=== PATIENT | male | born 1950 | race Caucasian/White ===

== ENCOUNTER 2017-12-21 14:30 | Inpatient (IN) ==
[2017-12-21] MEDS ORDERED: ACETAMINOPHEN 325 MG TABLET PO PRN (15:16)
[2017-12-21] MEDS ORDERED: PROMETHAZINE 25 MG/1 ML VIAL IM PRN (15:16)
[2017-12-21] MEDS ORDERED: DOCUSATE SODIUM 100 MG CAPSULE PO PRN (15:16)
[2017-12-21] MEDS ORDERED: KETOROLAC 30 MG/1 ML VIAL IV ONE (15:16)
[2017-12-21] MEDS ORDERED: ONDANSETRON 4 MG/2 ML VIAL IV PRN (15:16)
[2017-12-21] MEDS ORDERED: diphenhydrAMINE CAP 25 MG CAPSULE PO PRN (15:16)
[2017-12-21] MEDS ORDERED: FLUTICASONE 50 MCG NASAL SPRAY 16 GM BOTTLE BOTH NARES PRN (15:22)
[2017-12-21] MEDS ORDERED: oxyCODONE/ACETAMINOPHEN 5-325 MG TABLET PO PRN (15:22)
[2017-12-21] MEDS ORDERED: SODIUM CHLORIDE 0.9% 1,000 ML IV ONE (15:23)
[2017-12-21] MEDS ORDERED: MEPERIDINE 50 MG/1 ML VIAL IV SCH (15:30)
[2017-12-21] MEDS ORDERED: MEPERIDINE 25 MG/1 ML VIAL IV SCH (15:30)
[2017-12-21] MEDS ORDERED: KETOROLAC 30 MG/1 ML VIAL IV SCH (15:30)
[2017-12-21] MEDS ORDERED: KETOROLAC 30 MG/1 ML VIAL ONE (15:33)
[2017-12-21] MEDS ORDERED: MEPERIDINE 50 MG/1 ML VIAL IV PRN (15:35)
[2017-12-21] MEDS ORDERED: MEPERIDINE 25 MG/1 ML VIAL IV PRN (15:35)
[2017-12-21 16:17] LABS: Risk Ratio 3.65; Thyroid Stimulating Hormone 1.63 uIU/ml (0.358-3.74); VLDL CHOLESTEROL 18.4 MG/DL
[2017-12-21] MEDS ORDERED: NALOXONE 0.4 MG/ML VIAL IV PRN (17:24)
[2017-12-21] MEDS: SODIUM CHLORIDE 0.9% 1,000 ML IV SCH (17:52)
[2017-12-21] MEDS: MEPERIDINE PCA 300 MG/30 ML SYRINGE IV SCH (18:11)
[2017-12-21 18:42] LABS: Apearance,Urine CLEAR (Clear); Bacteria,Urine Occasional /HPF (Few); Bilirubin,Urine Negative (Negative); Blood, Urine Negative (Negative); Glucose,Urine (UA) Negative (Negative); Ketones,Urine Negative (Negative); Mucus,Urine Occasional /LPF (Occasional); Nitrite,Urine Negative (Negative); Protein,Urine Negative; RBC,Urine 1 /HPF (0-4); Urine Color Yellow (Yellow); Urine Specific Gravity 1.051 (1.001-1.035); Urine Urobilinogen < 2.0 EU/DL (0.2-1.0); WBC,Urine 1 /HPF (0-6)
[2017-12-21] MEDS: PANTOPRAZOLE 40 MG TABLET PO SCH (18:59)
[2017-12-21] MEDS ORDERED: ENOXAPARIN 40 MG/0.4 ML SYRINGE SUBCUT SCH (21:00)
[2017-12-21] MEDS: LEVOTHYROXINE 75 MCG TABLET PO SCH (21:05)
[2017-12-21] MEDS: TAMSULOSIN 0.4 MG CAPSULE PO SCH (21:05)
[2017-12-21] MEDS: ZALEPLON 5 MG CAPSULE PO SCH (21:05)
[2017-12-21] MEDS: oxyCODONE ER 20 MG TABLET PO SCH (21:06)
[2017-12-21] MEDS: GLUCOSAMINE 500 MG TABLET PO SCH (21:06)
[2017-12-21] MEDS ORDERED: oxyCODONE/ACETAMINOPHEN 5-325 MG TABLET PO SCH (22:00)
[2017-12-22] MEDS: SODIUM CHLORIDE 0.9% 1,000 ML IV SCH ×5 (02:18→23:31)
[2017-12-22 07:00] LABS: Basophils % 0.3 % (0.0-0.8); Eosinophils # 0.2 10*3/uL (0.0-0.87); Eosinophils % 2.1 % (0.00-10.9); Hematocrit 38.5 VOL% (42.0-52.0); Hemoglobin 12.2 GM/DL (14.0-18.0); Immature Granulocytes % 0.4 %; Immature Granulocytes Absolute 0.04 #; Mean Corpuscular HGB Conc 31.7 GM/DL (32-36); Mean Corpuscular Hemoglobin 29 PG (27-34); Mean Corpuscular Volume 91.2 FL (87-102); Mean Platelet Volume 12.4 FL (9.6-12.0); Monocytes # 1.2 10*3/uL (0.11-0.8); Monocytes % 12.4 % (1.7-12.7); Neutrophils % 63.8 % (38.7-73.9); Platelet Count 202 T/CUMM (130-400); Red Blood Count 4.22 MC/CUMM (3.8-5.5); Red Cell Distribution Width 15.8 % (9.3-17.3); White Blood Count 9.4 T/CUMM (4-12)
[2017-12-22 07:18] LABS: Calcium 7.8 MG/DL (8.5-10.1); Osmolality,Calculated 278.5 MOS/KG (273-304); Potassium 4.1 MMOL/L (3.5-5.1)
[2017-12-22] MEDS: ESCITALOPRAM 10 MG TABLET PO SCH (08:29)
[2017-12-22] MEDS: TAMSULOSIN 0.4 MG CAPSULE PO SCH (08:29)
[2017-12-22] MEDS: PANTOPRAZOLE 40 MG TABLET PO SCH (08:30)
[2017-12-22] MEDS: CETIRIZINE 10 MG TABLET PO SCH (08:30)
[2017-12-22] MEDS: GLUCOSAMINE 500 MG TABLET PO SCH ×2 (08:31→20:13)
[2017-12-22] MEDS: MULTIVITAMIN (CENTRUM) TABLET PO SCH (08:31)
[2017-12-22] MEDS: oxyCODONE ER 20 MG TABLET PO SCH ×2 (08:32→20:12)
[2017-12-22] MEDS ORDERED: SODIUM CHLORIDE 0.9% 1,000 ML IV ONE (09:57)
[2017-12-22] MEDS: MEPERIDINE PCA 300 MG/30 ML SYRINGE IV SCH (20:11)
[2017-12-22] MEDS: ZALEPLON 5 MG CAPSULE PO SCH (20:13)
[2017-12-22] MEDS: LEVOTHYROXINE 75 MCG TABLET PO SCH (20:13)
[2017-12-23] MEDS: oxyCODONE ER 20 MG TABLET PO SCH (07:45)
[2017-12-23] MEDS ORDERED: SUGAMMADEX 200 MG/2 ML VIAL IV ONE (08:18)
[2017-12-23] MEDS ORDERED: TOBRAMYCIN 80 MG/2 ML VIAL ONE (08:50)
[2017-12-23] MEDS ORDERED: NEOSTIGMINE 10 MG/10 ML VIAL ONE ×2 (09:00→09:59)
[2017-12-23] MEDS ORDERED: PROPOFOL 200 MG/20 ML VIAL IV ONE (09:57)
[2017-12-23] MEDS ORDERED: ROCURONIUM 100 MG/10 ML VIAL IV ONE (09:58)
[2017-12-23] MEDS ORDERED: SEVOFLURANE 1 UNIT/15 MINUTE INH ONE (09:58)
[2017-12-23] MEDS ORDERED: ONDANSETRON 4 MG/2 ML VIAL ONE (09:58)
[2017-12-23] MEDS ORDERED: ePHEDrine 50 MG/ML AMP ONE (09:58)
[2017-12-23] MEDS ORDERED: fentaNYL 100 MCG/2 ML VIAL ONE (09:58)
[2017-12-23] MEDS ORDERED: ACETAMINOPHEN 1,000 MG/100 ML VIAL IV ONE (09:58)
[2017-12-23] MEDS ORDERED: MIDAZOLAM 2 MG/2 ML VIAL ONE (09:58)
[2017-12-23] MEDS ORDERED: GLYCOPYRROLATE 0.4 MG/2 ML VIAL ONE (09:58)
[2017-12-23] MEDS: SODIUM CHLORIDE 0.9% 1,000 ML IV SCH (11:19)
[2017-12-23] MEDS: MULTIVITAMIN (CENTRUM) TABLET PO SCH (11:26)
[2017-12-23] MEDS: GLUCOSAMINE 500 MG TABLET PO SCH (11:26)
[2017-12-23] MEDS: ESCITALOPRAM 10 MG TABLET PO SCH (11:26)
[2017-12-23] MEDS: CETIRIZINE 10 MG TABLET PO SCH (11:28)
[2017-12-23] MEDS: oxyCODONE/ACETAMINOPHEN 5-325 MG TABLET PO PRN ×2 (11:38→13:29)
[2017-12-23] MEDS: PANTOPRAZOLE 40 MG TABLET PO SCH (11:47)
[2017-12-23] MEDS ORDERED: PHENAZOPYRIDINE 95 MG TABLET PO SCH (12:00)
[2017-12-23 12:48] VITALS: BP 116/71
[2017-12-26 22:01] LABS: Stone Source Passed Stone
== END 2017-12-23 16:14 | disposition home or self-care (01) | DRG 660 ==
LOC: N.ED 14:30 → N.EDINP 15:16 → N.5E 16:28
PROVIDERS: ADMIT Internal Medicine; ATTEND Internal Medicine